=== PATIENT | male | born 1995 | race African-American/Black ===

== ENCOUNTER 2023-01-26 00:15 | Emergency (ER) | payer OTHER ==
[~2023-01-26] VITALS: Ht 170.2 cm; Wt 74.4 kg
[2023-01-26 00:35] VITALS: BP 115/73
[2023-01-26] MEDS ORDERED: SULF400T11 PO (03:52)
[2023-01-26] MEDS ORDERED: cefTRIAXone SOD 1,000 MG VL IM ONE (04:00)
== END 2023-01-26 04:12 | disposition home or self-care (01) ==
LOC: ER 00:15
DX: L02.214 Cutaneous abscess of groin (principal)
CPT/HCPCS: 96372; 99283; J0696

== ENCOUNTER 2023-02-11 22:48 | Emergency (ER) | payer OTHER ==
[~2023-02-11] VITALS: Ht 170.2 cm; Wt 72.1 kg
[~2023-02-11 22:48] MED LIST: SULF400T11 PO
[2023-02-11 23:10] LABS: Hematocrit 40.5 % (41.0-53.0); Hemoglobin 13.9 g/dL (13.5-17.5); Mean Corpuscular Hgb Conc. 34.4 g/dL (32.0-36.0); Mean Corpuscular Volume 81.4 fL (80.0-100.0); Red Blood Cells 4.98 10^6/uL (4.5-5.90); Red Cell Distribution Width 13.6 % (11.8-14.3); White Blood Cell 5.1 10^3/uL (4.4-10.8)
[2023-02-11 23:12] LABS: Band Neutrophils % (manual) 0; Basophils % (manual) 0 (0.0-2.0); Blast Cells 0; Metamyelocytes % 0; Myelocytes % 0; Promyelocytes % 0; Reactive Lymphocytes 0
[2023-02-11] MEDS ORDERED: ACETAMINOPHEN 500 MG TAB PO ONE (23:15)
[2023-02-11 23:25] LABS: INR 1.07 (0.9-1.15); Partial Thromboplastin Time 29.1 sec (24.6-33.4)
[2023-02-11 23:28] LABS: Albumin 3.6 g/dL (3.4-5.0); BUN/Creatinine Ratio 9.1 (10.0-20.0); Calcium 8.7 mg/dL (8.5-10.1); Magnesium 2.2 mg/dL (1.6-2.6); Potassium 3.6 mmol/L (3.5-5.1)
[2023-02-11 23:30] VITALS: BP 124/64
[2023-02-11 23:30] LABS: Bilirubin, Total 0.3 mg/dL (0.2-1.0); Total Protein 7.5 g/dL (6.4-8.2)
[2023-02-11 23:40] LABS: Eosinophils % (manual) 3 (0-7); Lymphocytes % (manual) 64 (10.0-50.0); Monocytes % (manual) 4 (0-12)
[2023-02-12] MEDS ORDERED: ACET1CAP14 PO (01:22)
[2023-02-12 03:35] LABS: Urine Bacteria NONE SEEN /hpf (None Seen); Urine Blood Negative /uL (Negative); Urine Mucus FEW (None Seen); Urine Specific Gravity 1.023 (1.001-1.035); Urine WBC 1 /hpf (0 - 3)
== END 2023-02-12 04:10 | disposition home or self-care (01) ==
LOC: ER 22:48
DX: R07.89 Other chest pain (principal); R06.02 Shortness of breath; Z79.899 Other long term (current) drug therapy
CPT/HCPCS: 36415; 71045; 80053; 81001; 83735; 83880; 84484; 85007; 85027; 85610; 85730; 93005